=== PATIENT | female | born 1995 | race Two or more races ===

== ENCOUNTER 2016-08-29 22:07 | Emergency (ER) | payer OTHER ==
[2016-08-29 22:19] VITALS: BP 129/48; PULSE 80; TEMP 98.5; BMI 20.7
--- NOTE | 2016-08-29 23:00 | PDOC ---
History of Present Illness - General History Source: Patient Exam Limitations: No Limitations - History of Present Illness Initial Comments: 08/29/16 23:27 The patient is a 21-year-old female with a significant past medical history of bipolar disorder, and presents to the emergency department with dizziness, abdominal pain, and flank pain for a week. She reports feeling like the room is spinning, which is exacerbated by movement and change of position. She reports associated decreased coordination and anxiety as well. She states she has stabbing pains in the posterior region of her head. She states that she started taking Lamictal for her bipolar disorder this week (previously on Zoloft). She reports that the abdominal pain is localized to the left suprapubic region. She reports that the flank pain is bilateral, but worse on the left side. The patient denies chest pain and shortness of breath. The patient denies fever , chills, nausea, vomit, diarrhea and constipation. The patient denies dysuria, frequency, urgency and hematuria. LMP: 07/31/16 Allergies: cefaclor, banana Past Surgical History: None reported Social History: No toxic habits reported Psychiatrist: Dr. Goodman ([place]) <Rachel Giraldo - Last Filed: 08/29/16 23:27> <Billy Wall - Last Filed: 08/30/16 00:56> - General Chief Complaint: Lightheaded Stated Complaint: DIZZINESS Time Seen by Provider: 08/29/16 22:22 Past History <Rachel Giraldo - Last Filed: 08/29/16 23:27> - Past Medical History Psychiatric Problems: Yes (bi polar) - Immunization History Immunization Up to Date: Yes - Psycho/Social/Smoking Cessation Hx Anxiety: No Suicidal Ideation: No Smoking History: Never smoked Have you smoked in the past 12 months: No Hx Alcohol Use: No Drug/Substance Use Hx: No Substance Use Type: None <Billy Wall - Last Filed: 08/30/16 00:56> - Past Medical History Allergies/Adverse Reactions: Allergies Allergy/AdvReac Type Severity Reaction Status Date / Time banana Allergy Verified 08/29/16 22:19 cefaclor [From Ceclor] Allergy Verified 08/29/16 22:19 Home Medications: Ambulatory Orders NK [No Known Home Medication] 03/25/16 Review of Systems - Review of Systems Able to Perform ROS?: Yes Comments:: 08/29/16 23:28 GENERAL/CONSTITUTIONAL: No fever or chills. No weakness. HEAD, EYES, EARS, NOSE AND THROAT: (+) Head pain. No change in vision. No ear pain or discharge. No sore throat. CARDIOVASCULAR: No chest pain or shortness of breath. RESPIRATORY: No cough, wheezing, or hemoptysis. GASTROINTESTINAL: (+) Abdominal pain. No nausea, vomiting, diarrhea or constipation. GENITOURINARY: No dysuria, frequency, or change in urination. MUSCULOSKELETAL: (+) Flank pain. No joint or muscle swelling or pain. No neck pain. SKIN: No rash NEUROLOGIC: (+) Dizziness. (+) Decreased coordination. No headache, loss of consciousness, or change in strength/sensation. ENDOCRINE: No increased thirst. No abnormal weight change. HEMATOLOGIC/LYMPHATIC: No anemia, easy bleeding, or history of blood clots. ALLERGIC/IMMUNOLOGIC: No hives or skin allergy. <Rachel Giraldo - Last Filed: 08/29/16 23:27> *Physical Exam - Vital Signs Last Vital Signs Temp Pulse Resp BP Pulse Ox 98.5 F 80 18 129/48 99 08/29/16 22:16 08/29/16 22:16 08/29/16 22:16 08/29/16 22:16 08/29/16 22:16 - Physical Exam Comments: 08/29/16 23:28 GENERAL: Awake, alert, and fully oriented, in no acute distress HEAD: No signs of trauma EYES: PERRLA, EOMI, sclera anicteric, conjunctiva clear ENT: Auricles normal inspection, hearing grossly normal, nares patent, oropharynx clear without exudates. Moist mucosa NECK: Normal ROM, supple, no lymphadenopathy, JVD, or masses LUNGS: Breath sounds equal, clear to auscultation bilaterally. No wheezes, and no crackles HEART: Regular rate and rhythm, normal S1 and S2, no murmurs, rubs or gallops ABDOMEN: Soft, nontender, normoactive bowel sounds. No guarding, no rebound. No masses EXTREMITIES: Normal range of motion, no edema. No clubbing or cyanosis. No cords, erythema, or tenderness NEUROLOGICAL: (+) No ataxia. (+) No dysdiadochokinesia. (+) Tandem gait normal, heel to vaughan normal, no deficits on confrontation testing. (+) Strength is symmetric and within normal limits. (+) Paraspinal pain in the lower thoracic area. Cranial nerves II through XII grossly intact. Normal speech. SKIN: Warm, Dry, normal turgor, no rashes or lesions noted. <Rachel Giraldo - Last Filed: 08/29/16 23:27> - Vital Signs Last Vital Signs Temp Pulse Resp BP Pulse Ox 98.5 F 80 18 129/48 99 08/29/16 22:16 08/29/16 22:16 08/29/16 22:16 08/29/16 22:16 08/29/16 22:16 <Billy Wall - Last Filed: 08/30/16 00:56> ED Treatment Course - LABORATORY CBC & Chemistry Diagram: 08/29/16 23:10 08/29/16 23:10 - ADDITIONAL ORDERS Additional order review: 08/29/16 23:10 RBC 4.33 MCV 90.1 MCHC 34.5 RDW 13.5 MPV 7.3 L Neutrophils % 50.2 D Lymphocytes % 36.4 D Monocytes % 11.0 H D Eosinophils % 1.6 D Basophils % 0.8 D <Rachel Giraldo - Last Filed: 08/29/16 23:27> - LABORATORY CBC & Chemistry Diagram: 08/29/16 23:10 08/29/16 23:10 <Billy Wall - Last Filed: 08/30/16 00:56> Medical Decision Making - Medical Decision Making 08/30/16 00:54 This is a 21yo F with chief complaint of vertiginous symptoms and just having started lamotrigine. She has a negative evaluation including CT head. She has no findings of significance on diagnostics. She will be encouraged to follow up with the PMD within the next 48 hours and have a conversation with the psychiatrist to change to different medication. I have given her antivert as well for symptom control. <Billy Wall - Last Filed: 08/30/16 00:56> *DC/Admit/Observation/Transfer - Attestations Scribe Attestion: 08/29/16 23:28 Documentation prepared by Rachel Giraldo, acting as medical record specialist for Billy Wall MD. <Rachel Giraldo - Last Filed: 08/29/16 23:27> - Discharge Dispostion Admit: No Decision to Admit order Date/Time: 08/30/16 00:50 <Billy Wall - Last Filed: 08/30/16 00:56> Diagnosis at time of Disposition: Dizziness, Medication reaction - Discharge Dispostion Disposition: HOME Condition at time of disposition: Good - Referrals Referrals: Babak Srinivasan MD [Primary Care Provider] - - Patient Instructions Additional Instructions: At this time, there is no suggestion of acute process and the symptoms you are experiencing are likely related to the new medication you are taking. Please follow up with your PMD within the next 48 hours and if there is any change otherwise in your symptoms, please return immediately to the ED. The medication you have been prescribed should be very helpful in alleviating your symptoms. You should ONLY STOP medications after discussing this with the prescribing physician.
[2016-08-29] MEDS ORDERED: SODIUM CHLORIDE 0.9% 500 ML INFUS.BAG IV ONE (23:02)
[2016-08-29 23:19] LABS: BASOPHIL 0.8 % (0-2.0); EOSINOPHIL 1.6 % (0-4.5); MCH 31.1 pg (25.7-33.7); MCHC 34.5 g/dl (32.0-36.0); MEAN CELL VOLUME 90.1 fl (80-96); MEAN PLT VOLUME 7.3 fl (7.5-11.1); NEUTROPHILS 50.2 % (42.8-82.8); PLATELET COUNT 216 K/MM3 (134-434); RDW 13.5 % (11.6-15.6); WHITE BLOOD COUNT 8.1 K/mm3 (4.0-10.0)
[2016-08-29 23:35] LABS: ALBUMIN 3.7 g/dl (3.4-5.0); ANION GAP 8 (8-16); BILIRUBIN,TOTAL 0.3 mg/dL (0.2-1.0); CALCIUM 8.6 mg/dL (8.5-10.1); CO2 29 mmol/L (21-32); CREATININE 0.6 mg/dL (0.55-1.02); GLUCOSE,RANDOM 95 mg/dL (74-106); SGOT/AST 11 U/L (15-37); SGPT/ALT 25 U/L (12-78); TOT PROT 6.8 g/dl (6.4-8.2)
[2016-08-29 23:36] LABS: ALK PHOS 64 U/L (45-117)
[2016-08-30] MEDS ORDERED: MECLIZINE HCL 25 MG TABLET (FP) PO ONE (00:34)
[2016-08-30] MEDS ORDERED: MECLIZINE HCL 25 MG TABLET (FP) ONE (00:45)
[2016-08-30 01:08] LABS: URINE APPEARANCE CLEAR; URINE BILIRUBIN NEGATIVE (NEGATIVE); URINE BLOOD NEGATIVE (NEGATIVE); URINE COLOR STRAW; URINE GLUCOSE (UA) NEGATIVE (NEGATIVE); URINE KETONE NEGATIVE (NEGATIVE); URINE LEUK ESTERASE NEGATIVE (NEGATIVE); URINE NITRITE NEGATIVE (NEGATIVE); URINE PROTEIN NEGATIVE (NEGATIVE); URINE UROBILINOGEN NEGATIVE E.U./dl (0.2-1.0)
== END 2016-08-30 01:37 | disposition home or self-care (01) ==
LOC: JER 22:07
DX: T42.6X5A Adverse effect of other antiepileptic and sedative-hypnotic drugs, initial encounter (principal)
CPT/HCPCS: 36415; 70450-TC; 74000-TC; 80053; 81003; 83690; 84703; 85025; 99282-25

== ENCOUNTER 2017-03-02 17:16 | Emergency (ER) | payer OTHER ==
[2017-03-02 17:34] VITALS: BP 110/71; PULSE 73; TEMP 98.6; BMI 20.7
--- NOTE | 2017-03-02 18:18 | PDOC ---
Attending Attestation - Resident Resident Name: Sayra Black - ED Attending Attestation I have performed the following: I have examined & evaluated the patient, The case was reviewed & discussed with the resident, I agree w/resident's findings & plan, Exceptions are as noted - HPI HPI: 03/02/17 19:54 21-year-old female with PMH 0, para 0, presents because she had a positive urine test at home and she had some mild suprapubic pain - Physicial Exam PE: 03/02/17 19:55 21-year-old female , well-nourished well-developed in no acute distress. HEENT within normal limits. Neck supple, no bruits. Lungs clear to auscultation bilaterally CVS regular rate and rhythm S1, S2 no gallops no rubs. Abdomen nontender, nondistended, Extremities There is an incision in the left axilla abscess that was packed yesterday, now the left upper arm is swollen, erythematous with streaking Neuro alert and oriented 3, ambulatory, no gross focal neural deficits - Medical Decision Making 03/02/17 19:57 She had a negative test, urine and urinalysis did not show any evidence of infection. Patient declined pelvic ultrasound for her left adnexal discomfort. Follow-up with TRADE FACILITATOR at [address] [place] [address]
[2017-03-02 19:11] LABS: URINE APPEARANCE SLCLOUDY; URINE BILIRUBIN NEGATIVE (NEGATIVE); URINE BLOOD 3+ (NEGATIVE); URINE COLOR YELLOW; URINE GLUCOSE (UA) NEGATIVE (NEGATIVE); URINE KETONE NEGATIVE (NEGATIVE); URINE LEUK ESTERASE NEGATIVE (NEGATIVE); URINE NITRITE NEGATIVE (NEGATIVE); URINE PROTEIN NEGATIVE (NEGATIVE); URINE UROBILINOGEN NEGATIVE mg/dL (0.2-1.0)
--- NOTE | 2017-03-02 19:33 | PDOC ---
History of Present Illness - General Chief Complaint: Vaginal Bleeding Stated Complaint: PAIN/ e/o ectopic Time Seen by Provider: 03/02/17 18:16 History Source: Patient Exam Limitations: No Limitations - History of Present Illness Initial Comments: 21yo F with PMH of bipolar disorder, presents c/o lower abdominal pain x 3 weeks. Pain is intermittent, described as a stabbing feeling, rated 4/10 now. Pain in bilateral lower abdomen, Left > Right. Pain radiates around to both flanks. Pain woke pt up out of sleep last night at 2am. Pt took Ibuprofen 800mg which alleviated the pain. Pain is worse with intercourse. Pt has hx of untreated Chlamydia, progressing to PID. PID treated in 05/2016. Pt took 3 tests today, 2 were (+) and 1 was (-). 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 Pt also c/o cold/allergy symptoms x 1 week (resolved now). Manager [employer]: Melani Johnson 03/02/17 19:25 Associated Symptoms: denies: chest pain, cough, diaphoresis, fever/chills, headaches, malaise, shortness of breath Past History - Past Medical History Allergies/Adverse Reactions: Allergies Allergy/AdvReac Type Severity Reaction Status Date / Time banana Allergy Verified 03/02/17 17:31 cefaclor [From Ceclor] Allergy Verified 03/02/17 17:31 Home Medications: Ambulatory Orders NK [No Known Home Medication] 03/25/16 Psychiatric Problems: Yes (bi polar) - Surgical History Other Surgical History: denies 03/02/17 19:34 - Family Disease History Family Disease History: Other: Mother (uterine fibroids) - Reproductive History LMP comment: 03/01/17, previously 01/29/17 Is Patient Now?: No (#): 0 Para: 0 PID: Yes (05/2016) - Immunization History Immunization Up to Date: Yes - Suicide/Smoking/Psychosocial Hx Smoking History: Never smoked Have you smoked in the past 12 months: No Information on smoking cessation initiated: No Hx Alcohol Use: No Drug/Substance Use Hx: No Substance Use Type: None Review of Systems - Review of Systems Able to Perform ROS?: Yes Is the patient limited Irish proficient: No Constitutional: No: Chills, Diaphoresis, Fever HEENTM: No: Recent change in vision, Ear Pain, Nose Pain, Throat Pain Respiratory: No: Cough, Shortness of Breath, Stridor, Wheezing Cardiac (ROS): No: Chest Pain, Edema, Irregular Heart Rate, Lightheadedness, Palpitations, Chest Tightness ABD/GI: Yes: Abdominal cramping. No: Abdominal Distended, Constipated, Diarrhea , Nausea, Rectal Bleeding, Vomiting : No: Burning, Dysuria, Hematuria Integumentary: No: Bruising, Erythema, Rash Neurological: No: Headache, Numbness, Paresthesia, Unsteady Gait *Physical Exam - Vital Signs Last Vital Signs Temp Pulse Resp BP Pulse Ox 98.6 F 73 18 110/71 100 03/02/17 17:32 03/02/17 17:32 03/02/17 17:32 03/02/17 17:32 03/02/17 17:32 - Physical Exam General Appearance: Yes: Nourished, Appropriately Dressed. No: Apparent Distress HEENT: positive: EOMI, Normal Voice, Other (moist mucous membranes). negative: Pale Conjunctivae, Scleral Icterus (R), Scleral Icterus (L), Nasal Congestion, Rhinorrhea Neck: positive: Trachea midline, Supple Respiratory/Chest: positive: Lungs Clear, Normal Breath Sounds. negative: Respiratory Distress, Accessory Muscle Use Cardiovascular: positive: Regular Rhythm, Regular Rate, S1, S2. negative: Murmur Gastrointestinal/Abdominal: positive: Soft, Tenderness (origin of pain in LLQ/ pelvis). negative: Distended, Guarding, Rebound Musculoskeletal: positive: Normal Inspection. negative: Decreased Range of Motion Extremity: negative: Swelling, Calf Tenderness, Erythema Integumentary: positive: Normal Color, Dry, Warm Neurologic: positive: Fully Oriented, Alert, Normal Mood/Affect, Normal Response , Motor Strength 5/5 ED Treatment Course - LABORATORY CBC & Chemistry Diagram: 03/02/17 19:45 03/02/17 19:45 - ADDITIONAL ORDERS Additional order review: Laboratory Results 03/02/17 03/02/17 19:00 19:00 Urine Color Yellow Urine Appearance Slcloudy Urine pH 7.0 Urine Protein Negative Urine Glucose (UA) Negative Urine Ketones Negative Urine Blood 3+ H Urine Nitrite Negative Urine Bilirubin Negative Urine Urobilinogen Negative Urine HCG, Qual Negative Medical Decision Making - Medical Decision Making 21yo F with PMH of bipolar disorder, presents c/o LLQ/pelvic pain x 3 weeks , worse with intercourse. LMP began yesterday, pt currently having period-like bleeding. Previous LMP was regular, 01/29/17. Pt has hx of Chlamydia which progressed to PID. This pain does not feel like PID. Ddx: ovarian cyst vs fibroids vs ectopic vs PID U preg (-) UA -> 3+ blood CBC with diff -> wnl CMP beta-hcg quant type and screen 03/02/17 19:39 03/02/17 19:52 Pt declines transvaginal US to r/o ovarian cysts vs fibroids, because she is on her period now. Pt can f/u as an outpatient for this procedure. Pt can go home. 03/02/17 21:05 CMP -> wnl beta-hcg quant -> (-) Pt can go home. *DC/Admit/Observation/Transfer Diagnosis at time of Disposition: Abdominal pain - Discharge Dispostion Admit: No - Referrals Referrals: Babak Srinivasan MD [Primary Care Provider] - Jessie Machuca MD [Staff Physician] - - Patient Instructions Printed Discharge Instructions: DI for Pelvic Pain Additional Instructions: Please follow-up with a printing machinist at [address] [place] [address] regarding your pelvic pain. Please continue to take NSAIDs (such as Aleve, Motrin, Advil) for pain. Please return to the hospital for persistent or worsening pain.
[2017-03-02 19:55] LABS: BASOPHIL 1.1 % (0-2.0); EOSINOPHIL 1.5 % (0-4.5); MCH 31.3 pg (25.7-33.7); MCHC 34.2 g/dl (32.0-36.0); MEAN CELL VOLUME 91.4 fl (80-96); MEAN PLT VOLUME 7.5 fl (7.5-11.1); NEUTROPHILS 47.6 % (42.8-82.8); PLATELET COUNT 248 K/MM3 (134-434); RDW 12.8 % (11.6-15.6); WHITE BLOOD COUNT 6.9 K/mm3 (4.0-10.0)
[2017-03-02 20:37] LABS: ANION GAP 6 (8-16); BILIRUBIN,TOTAL 0.3 mg/dL (0.2-1.0); CALCIUM 8.8 mg/dL (8.5-10.1); CO2 28 mmol/L (21-32); CREATININE 0.5 mg/dL (0.55-1.02); GLUCOSE,RANDOM 85 mg/dL (74-106); SGOT/AST 6 U/L (15-37); SGPT/ALT 17 U/L (12-78); TOT PROT 7.1 g/dl (6.4-8.2)
[2017-03-02 20:39] LABS: ALK PHOS 58 U/L (45-117)
[2017-03-02 20:53] LABS: URINE MUCUS RARE; URINE RBC 109 /hpf (0-3)
== END 2017-03-02 21:10 | disposition home or self-care (01) ==
LOC: JER 17:16
DX: R10.2 Pelvic and perineal pain (principal); F31.9 Bipolar disorder, unspecified
CPT/HCPCS: 36415; 80053; 81003; 81015; 84702; 84703; 85025; 86850; 86900; 86901; 99282-25